=== PATIENT | female | born 1990 | race Caucasian/White ===

== ENCOUNTER 2023-12-13 17:25 | Emergency (ER) | payer BC, SELFPAY ==
[2023-12-13 17:27] VITALS: BP 156/97; PULSE 71; RESP 24; TEMP 36.6; O2SAT 96; BMI 50.2
--- NOTE | 2023-12-13 17:46 | EDS_ITS ---
HPI <DORA Saez - Last Filed: 12/13/23 19:38> History of Present Illness Chief Complaint: Dizziness Narrative Narrative: 33-year-old female with past medical history of migraines presents with a headache and lightheadedness. Around 1:45 AM her neck started to feel tight which is the typical sign that she will have the onset of a migraine. She developed a headache in her bitemporal and bioccipital areas that feel similar to previous. Around 3 PM she was in a meeting and she started to feel lightheaded and had to excuse herself. She felt nauseated and laid down on the bathroom floor but it did not help. She states she feels lightheaded with wal kristina but denies syncope. No chest pain or shortness of breath. No vision changes or diplopia. She took ibuprofen and her headache is decreasing. She went to urgent care and was sent here for evaluation. She states she has never been to the emergency room for headaches. She has had both regular tension headaches and migraines since a teenager and has Imitrex for rescue medication she typically takes but did not have it with her at her job. She is on Cymbalta daily for the headaches. [facility] <DORA Saez - Last Filed: 12/13/23 19:38> [facility] Home Medications ?Medication ?Instructions ?Recorded ?Last Taken ?Type atomoxetine 25 mg capsule 25 mg PO DAILY 12/13/23 Unknown History duloxetine 20 mg capsule,delayed 20 mg PO DAILY 12/13/23 Unknown History release (Cymbalta) ferrous sulfate 325 mg (65 mg 325 mg PO QODAY 12/13/23 Unknown History iron) tablet (Feosol) levothyroxine 88 mcg tablet 88 mcg PO DAILY 12/13/23 Unknown History (Euthyrox) tirzepatide 5 mg/0.5 mL 5 mg subcut QWEEK 12/13/23 Unknown History subcutaneous pen injector (Mounjaro) Allergy/AdvReac Type Severity Reaction Status Date / Time No Known Allergies Allergy Verified 12/13/23 17:27 Social History Smoking Status: Never smoker ROS <DORA Saez - Last Filed: 12/13/23 19:38> ROS ED ROS Narrative Constitutional: Negative for fever, chills, malaise. Eyes: Negative for visual change. CVS: Negative for chest pain, syncope. Respiratory: Negative for shortness of breath. GI: Positive for nausea. Neuro: Positive for headache. EXAM <DORA Saez - Last Filed: 12/13/23 19:38> Physical Exam Narrative Exam Narrative: CONST: Patient sitting in no acute distress. EYES: Normal inspection. PERRL, EOMI. ENT: Normal inspection, moist mucous membranes. NECK: Normal inspection. No meningismus. RESP: No respiratory distress, CTAB. CVS: Regular rate and rhythm, no murmur, no gallop. SKIN: Color normal, no rash, warm, dry, intact. EXTREMITIES: Normal appearance, no pedal edema. NEURO: Alert and answering questions appropriately. 5/5 upper and lower extremity strength, normal [id number] and [id number], normal gait. PSYCH: Normal affect. Const Vital Signs: 12/13/23 17:27 12/13/23 18:01 12/13/23 19:18 Temperature 98 F Temperature Source Oral Pulse Rate 71 71 Pulse Rate [Lying] 72 Pulse Rate [Sitting (for 1 minute prior to obtaining)] 60 Pulse Rate [Standing (for 1 minute prior to obtaining)] 66 Respiratory Rate 24 H 16 Blood Pressure 156/97 H 156/98 H Blood Pressure [Lying] 137/97 H Blood Pressure [Sitting (for 1 minute prior to obtaining)] 178/115 H Blood Pressure [Standing (for 1 minute prior to obtaining)] 176/124 H Blood Pressure Mean 116 117 Blood Pressure Mean [Lying] 110 Blood Pressure Mean [Sitting (for 1 minute prior to obtaining)] 136 Blood Pressure Mean [Standing (for 1 minute prior to obtaining)] 141 Pulse Ox 96 99 Oxygen Delivery Method Room Air Room Air 12/13/23 19:18 Temperature 98 F Temperature Source Pulse Rate 71 Pulse Rate [Lying] Pulse Rate [Sitting (for 1 minute prior to obtaining)] Pulse Rate [Standing (for 1 minute prior to obtaining)] Respiratory Rate 16 Blood Pressure 159/113 H Blood Pressure [Lying] Blood Pressure [Sitting (for 1 minute prior to obtaining)] Blood Pressure [Standing (for 1 minute prior to obtaining)] Blood Pressure Mean 128 Blood Pressure Mean [Lying] Blood Pressure Mean [Sitting (for 1 minute prior to obtaining)] Blood Pressure Mean [Standing (for 1 minute prior to obtaining)] Pulse Ox 99 Oxygen Delivery Method <Dr. Sinan Fan, - Last Filed: 12/13/23 19:49> Physical Exam Const Vital Signs: 12/13/23 17:27 12/13/23 18:01 12/13/23 19:18 Temperature 98 F Temperature Source Oral Pulse Rate 71 71 Pulse Rate [Lying] 72 Pulse Rate [Sitting (for 1 minute prior to obtaining)] 60 Pulse Rate [Standing (for 1 minute prior to obtaining)] 66 Respiratory Rate 24 H 16 Blood Pressure 156/97 H 156/98 H Blood Pressure [Lying] 137/97 H Blood Pressure [Sitting (for 1 minute prior to obtaining)] 178/115 H Blood Pressure [Standing (for 1 minute prior to obtaining)] 176/124 H Blood Pressure Mean 116 117 Blood Pressure Mean [Lying] 110 Blood Pressure Mean [Sitting (for 1 minute prior to obtaining)] 136 Blood Pressure Mean [Standing (for 1 minute prior to obtaining)] 141 Pulse Ox 96 99 Oxygen Delivery Method Room Air Room Air 12/13/23 19:18 Temperature 98 F Temperature Source Pulse Rate 71 Pulse Rate [Lying] Pulse Rate [Sitting (for 1 minute prior to obtaining)] Pulse Rate [Standing (for 1 minute prior to obtaining)] Respiratory Rate 16 Blood Pressure 159/113 H Blood Pressure [Lying] Blood Pressure [Sitting (for 1 minute prior to obtaining)] Blood Pressure [Standing (for 1 minute prior to obtaining)] Blood Pressure Mean 128 Blood Pressure Mean [Lying] Blood Pressure Mean [Sitting (for 1 minute prior to obtaining)] Blood Pressure Mean [Standing (for 1 minute prior to obtaining)] Pulse Ox 99 Oxygen Delivery Method [facility] <DORA Saez - Last Filed: 12/13/23 19:38> [facility] Narrative Medical decision making narrative: Patient has a migraine headache similar to previous but is also having nausea, dry heaving, and lightheadedness. She was given IV fluids, Imitrex and Toradol. She is also tolerating p.o. fluids now after antiemetics and feeling better. Orthostatic vital signs are negative. With a normal neurological exam and the fact that her headache is similar to previous I do not think any CT imaging is indicated. She was discharged home in stable condition. <Dr. Sinan Fan DO - Last Filed: 12/13/23 19:49> [facility] Treatment and Re-Evaluation :: I have personally performed a face to face assessment of the patient and have reviewed the YAHAIRA Note. I performed a substantive portion of the visit including all aspects of the following. My yu findings include: History: Patient presents with headache and dizziness that began today while she was at work. Patient states she started feeling a headache while she was sitting in a meeting. Patient states she has a history of migraine headaches. Patient states that she became nauseated and hot. Patient states she went out to her car. Patient states she was having some lightheadedness and felt like she needed to lean against a wall. Patient denies any spinning sensation. Patient denies any chest pain or shortness of breath. Patient states she did have some dry heaves. Exam: Vital signs are stable. Patient is afebrile. Patient is in no acute distress. Oral mucosa is pink and moist. Neck is supple. Trachea is midline. There is no JVD. Heart was regular rate and rhythm. Lungs are clear and equal bilaterally. There is good respiratory effort noted. Abdomen is soft. Bowel sounds are normal. There is no tenderness. Cranial nerves II through XII are intact. There are no focal motor or sensory deficits noted. Medical Decision Making: Patient was advised that this is most likely her migraine headaches causing her dizziness. Patient was given IV fluids. Patient was given a dose of Imitrex and Toradol here. Orthostatic vital signs were reviewed and were within normal limits. Patient is feeling better on reevaluation. Patient was instructed to rest in a dark quiet room. Patient was instructed to return if worse in any way. Patient understood and was agreeable with the plan. All questions were answered. Discharge Plan Triage Chief Complaint: Dizziness ED Midlevel Provider: Orquidea Gleason ED Provider: Sinan Fan Dx/Rx/DC Orders Clinical Impression: Migraine, Light-headedness Instructions: ED, Migraine (Classical) Prescriptions: No Action levothyroxine [Euthyrox] 88 mcg tablet 88 mcg PO DAILY duloxetine [Cymbalta] 20 mg capsule,delayed release(DR/EC) 20 mg PO DAILY atomoxetine 25 mg capsule 25 mg PO DAILY Mounjaro 5 mg/0.5 mL pen injector 5 mg subcut QWEEK ferrous sulfate [Feosol] 325 mg (65 mg iron) tablet 325 mg PO QODAY Primary Care Provider: [facility] ,Out of Referrals: [facility] Doctor,Out of [Primary Care Provider] - Print Language: Bel[place]ian Disposition Disposition: Home, Self Care
[2023-12-13] MEDS: SUMAtriptan 6 MG/0.5 ML Vial SC (17:58)
[2023-12-13] MEDS: Ketorolac 15 MG/ML Vial IM (17:59)
[2023-12-13 18:01] VITALS: BP 156/98; PULSE 71; RESP 16; O2SAT 99
[2023-12-13] MEDS: Ondansetron 4 MG/2 ML Vial IV (18:06)
[2023-12-13 19:18] VITALS: BP 137/97; BP 159/113; BP 176/124; BP 178/115; PULSE 60; PULSE 66; PULSE 71; PULSE 72; RESP 16; TEMP 36.6; O2SAT 99
== END 2023-12-13 19:49 | disposition home or self-care (01) ==
PROVIDERS: Emergency Provider Emergency Medicine; Referring Provider Emergency Medicine; Visit Provider Emergency Medicine
DX: G43.909 Migraine, unspecified, not intractable, without status migrainosus (principal); R42 Dizziness and giddiness; Z79.899 Other long term (current) drug therapy
CPT/HCPCS: 96372; 96374; 99284; A4216; J2405; J3030